=== PATIENT | female | born 1970 | race Caucasian/White ===

== ENCOUNTER → 2016-08-29 | Outpatient (CLI) | payer OTHER ==
[~2016-08-29] MED LIST: HUMALOG100 UNIT/1 SUB-Q; LIPITOR10 MG PO; NORCO 5-325 MG1 TAB PO; TOUJEO SOL300 UNIT/1 SUB-Q
== END | disposition disaster alternative care site (69) ==
LOC: GBCOE 09:58
DX: Z08 Encounter for follow-up examination after completed treatment for malignant neoplasm (principal); Z85.3 Personal history of malignant neoplasm of breast
CPT/HCPCS: G0206; G0279